=== PATIENT | male | born 1975 | race Caucasian/White ===

== ENCOUNTER 2021-11-02 12:48 | Outpatient (CLI) | payer BC, SELFPAY ==
--- OUTSIDE RECORDS SUMMARY | 2021-10-19 10:41 | XMS_ITS | Continuity of Care Document ---
:1975 Author Allergies, Adverse Reactions, Alerts No known allergies Social History Smoking Status Status Start Date End Date Date of Observat ion Never smoked tobacco April 7:11am (finding) Observation Status Observation Response Date of Response Occasional alcohol consumption September 16, 2017 10:20am Nonsmoker September 16, 2017 10:20 am Does not use illicit drugs September 16 8 10:20am History provided by Patient May 07, 2019 1 2:26am Where do you live? Own home/apt May 07, 2019 1 2:26am Comment on living situation 3 kids April 12:26am With whom do you live? 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 Ac tive of left lower extremity Ureteral calculus, left Resolved GERD (gastroesophageal reflux disease) A ctive History of appendectomy Active Status post bilateral inguinal hernia Ac tive repair History of umbilical hernia repair Activ e Inactive/Resolved Problems Medical Problem Onset Date Status Follow up Resolved Medications Medication Status Dose Units Route Directions Qty Days Start End Ins tructions Date Date Sertraline Active 150 MG PO Daily July Hcl 2021 1:04pm Acetaminophen Disconti 1 TABLET PO Twice A Day 20 [place] PRN /Hydrocodone nued 2008 (Vicodin) 5 10:28a Mg/500 Mg TAB m Acetaminophen Disconti 1 - 2 TABLET PO Every 4-6 August VICODIN 5-500 /Hydrocodone nued Hours , 2008 (Vicodin) 5 10:00am 9:34am Mg/500 Mg TAB Albuterol Disconti 2 PUFF INH Every 4 June (Ventolin nued Hours as , er Hfa) 90 Mcg needed 2018 06, DOSE 8:36am 2018 1:14pm Amoxicillin Disconti 875 MG PO Twice Daily July e nued For 7 Days , r 2020 8:50am 1:04pm Azithromycin Disconti 0 PO Daily June TAKE 500 MG (2 TABLETS) BY MOUTH TODAY, THEN 250 MG (1 TABLET) BY (Zithromax) nued , MOUTH ON CE DAILY FOR 4 MORE DAYS. 250 Mg TAB 2008 2008 9:52am 9:34am Azithromycin Disconti 0 MG PO Daily November TA KE 2 TABLETS TOGETHER TODAY, THEN 1 TABLET ONCE DAILY FOR 4 MORE (Zithromax) nued 250 Mg TAB 2006, 3:57pm 2006 10:30a m Benzonatate Disconti 100 MG PO Three Times Apr uar (Tessalon nued A Day as r , y Berry) 100 needed 2021 02, Mg CAP 7:28am 2021 3:26pm Ceftriaxone Disconti 250 MG IM Once October Sodium nued 2012 12:45pm 1:54pm Cephalexin Disconti 500 MG PO Twice A Day August nued 2017 1:45pm 1:49pm Cyclobenzapri Disconti 10 MG PO Bedtime as July em ne Hcl nued needed 2019, 4:21pm 2019 9:35am Cyclobenzapri Disconti 10 MG PO Bedtime as July ne Hcl nued needed 2017 10:16am 1:45pm Cyclobenzapri Disconti 10 MG PO Bedtime as 15 July Apr l ne Hcl nued needed 2017 10:08am 10:16a m Cyclobenzapri Disconti 1 TABLET PO Bedtime st PRN MUSCLE ne Hcl nued r , SPASM (Flexeril) 2009 Mg TAB 3:32pm 9:41am Diphenhydrami Disconti 25 MG PO October ne Hcl nued , (Sleep) 2008 (Benadryl) 10:38a Mg TAB m Diphtheria/Te Disconti 0.5 ML IM Once November tanus/Acell nued , Pertussis 2016 2016 (Adacel) 0.5 10:30am 10:32a Ml INJ m Doxycycline Disconti 100 MG PO Twice A Day October a Hyclate nued 2012, 1:42pm 2015 8:48am Fenofibrate Disconti 160 MG PO Daily April WIT H FOOD nued , 2019 11:00am 3:53pm Fenofibrate Disconti 160 MG PO Daily [place] TH FOOD nued , 2019 8:12am 11:00a m Guaifenesin/C Disconti 1 - 2 TSP PO Q4h Prn November odeine nued , tona Phosphate 2006, (Guaifenesin- 3:57pm 2006 Codeine) 100 10:30a Mg/10 Mg/5 Ml m SOLN Ibuprofen Disconti 800 MG PO Twice A Day Apruar nued as needed y 2008 7:45am Influenza Disconti 0.5 ML IM Once 1 Virus Vaccine nued r , er (Fluzone Pf 2010, [id number] 4:44pm 2010 (0.5 Ml)) 0.5 4:59pm Ml INJ Lorazepam Disconti 0.5-1 MG PO Bedtime as June nued needed , er 2019 3rd, 8:36am 2018 1:14pm Methylprednis Disconti 1 PACK PO Once 1 November TAKE olone (Medrol nued r , , DIRE CTED ON Dose-Glenn) 2009 PACKAGE Mg TAB 3:32pm 9:41am Metoprolol Disconti 1 TAB PO Twice A Day June Tartrate nued 2008 9:52am 9:34am Multiple Disconti 1 EA PO Daily r Vitamin nued y , (Multivitamin 2012) TAB 1:59pm Naproxen Disconti 500 MG PO Twice A Day June nued , , 2017 2017 10:08am 1:45pm Naproxen Disconti 500 MG PO Twice A Day Novemberuar (Naprosyn) nued , y 3rd, 500 Mg TAB 2010 2012 10:24am 1:59pm Naproxen Disconti 500 MG PO Twice A Day August Ta ke bid with (Naprosyn) nued , , food. 500 Mg TAB 2008 2008 10:00am 9:34am No Home Meds Disconti Novembered 2015 11:19a m None Disconti Novembered 2010 9:41am Omeprazole Disconti 20 MG PO Daily 90 Decembe Januar nued r , y 2021 03, 7:21am 2021 7:02am Prednisone Disconti 20 MG PO Twice A Day 10 mbe Filipe ar nued r , y 2021 02, 9:56am 2021 3:26pm Prednisone Disconti 20 MG PO Twice A Day January mb nued , er 2020 05, 1:35pm 2020 7:19am Prednisone Disconti 20 MG PO Twice A Day July nued , tona 2019, 4:20pm 2019 9:35am Prednisone Disconti 20-40 MG PO Daily June 2 tab s daily nued , er x 3 days; 2019 3rd, then 1 tab 8:36am 2019 daily x 4 1:14pm days. Prednisone Disconti 20 MG PO Twice A Day Julyed , 2017 3:44pm 1:37pm Propranolol Disconti 20 MG PO Twice A Day April y Hcl (Inderal) nued , , 20 Mg TAB 2012 2012 7:51am 9:53am Sertraline Disconti 150 MG PO Daily July Hcl nued , , 2021 2021 10:35am 1:04pm Sertraline Disconti 150 MG PO Daily January Hcl nued , 2020 1:33pm 10:35a m Sertraline Disconti 150 MG PO Daily 145 Februar Octobe Hcl nued y , r 2020 2:40pm 1:33pm Sertraline Disconti 100 MG PO Daily 90 Septemb Februa Hcl nued er ry , 2019 9:36am 2:40pm Sertraline Disconti 50 MG PO Daily July 1/2 t ablet Hcl nued , daily for 2019, week then 4:20pm 2019 increase to 9:36am once daily Zolpidem Disconti 5 MG PO Bedtime April Tartrate nued , (Ambien) 5 Mg 2012 2012 TAB 11:55am 9:53am Immunizations Immunization Event Date Not Given Dose Molded Rubber Goods Cutter Lot Vac cine Reason Number Number Informatio n Statement (VIS) Deta il Influenza February 26 Sanofi Pasteur [id number] Tetanus/Diptheri December 10, 1 a 2017 Tdap December 10, 2 (adolescent/adul 2016 t) Tdap December 16, 3 SANOFI (adolescent/adul 2016 t) Medical Equipment Device Date Implanted Device Details Bard 3DMax Mesh May 06, 2019 JUDI: [id number] Issuing Agency: [facility] Device Id: [id number] Expiration Date: 07-01-27 Lot Number: [id number] Advance Directives Advance Directive Response Recorded Date/Time Does Pt have Health Care No July 19 6 2:55pm Directive? Has patient completed a No May 09 7:11am Health Care Directive? Insurance Providers Guarantor Dipak Hanson Address [address] [place] [id number] Contact Info. Home Phone: Payer Policy Id Coverage Id Subscriber's Subscriber Id Effective E xpiration Name Date Date Bc Medicaid [id number] Dipak Hanson Products [id number] Plan of Treatment Future Tests Future scheduled test information is unavailable Pending Tests Pending diagnostic test information is unavailable Future Visits Future appointment information is unavailable Referrals to Other Providers Reason for Referral Start Provider Provider Contact Provider Address Referral Date Information Kalyani Taylor Work Phone: [facility] [address] [place] [phone] Future Procedures Future procedure information is unavailable Future Medications Future medication information is unavailable Patient Instructions Kidney Stones (ED) Weakness (DC)
--- NOTE | 2021-11-02 13:00 | CRLHL7_ITS ---
For Patients: As a result of the Cures Act, medical imaging exams and procedure reports are released immediately into your electronic medical record. You may view this report before your referring provider. If you have questions, please contact your health care provider. Indication: COUGH X 9 MONTHS. FOLLOW UP. PRE TREATMENT PLANNING PROTOCOL. Technique: CT Chest WITHOUT MONARCH PROTOCOL Please note that all CT scans at this facility use dose modulation, iterative reconstruction, and/or weight-based dosing when appropriate to reduce radiation dose to as low as reasonably achievable. Comparison: 4.8. Findings: Patchy areas of air trapping are present on today`s examination within both upper lobes. Chronic calcified granuloma within the left medial upper lobe measuring 6 millimeters. Decreased conspicuity of the previously noted ground-glass densities superior segment left lower lobe as there is now surrounding atelectasis. Emphysematous changes are better visualized on today`s exam as well. 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 No pleural effusion. Cardiomegaly. No fracture. Stable mediastinal lymph nodes which are not enlarged. Calcified left-sided hilar lymph nodes again noted. Impression: Bilateral lower lobe atelectasis which decreases the conspicuity of the previously noted ground-glass nodule in the left lower lobe. Old granulomatous disease. 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 Please note that all CT scans at this facility use dose modulation, iterative reconstruction, and/or weight-based dosing when appropriate to reduce radiation dose to as low as reasonably achievable. Dictated by Fernando Rolle MD @ 11/02/2021 1:57:21 PM (Electronically Signed)
== END 2021-11-02 12:49 | disposition home or self-care (01) ==
LOC: CT 12:49
PROVIDERS: PCP Physician Assistant Medical; Visit Provider Internal Medicine Pulmonary Disease
DX: R91.8 Other nonspecific abnormal finding of lung field (principal); J98.11 Atelectasis; J44.9 Chronic obstructive pulmonary disease, unspecified
CPT/HCPCS: 71250

== ENCOUNTER 2021-11-15 09:08 | Outpatient (CLI) | payer BC, SELFPAY | END 2021-11-15 09:09 | disposition home or self-care (01) | LOC: NFLDREF 09:09 | PROVIDERS: PCP Physician Assistant Medical; Visit Provider Registered Nurse | DX: Z31.41 Encounter for fertility testing (principal) | CPT/HCPCS: 89310; 89398 ==

== ENCOUNTER 2021-11-16 15:05 | Outpatient (CLI) | payer BC, SELFPAY | END 2021-11-16 15:06 | disposition home or self-care (01) | PROVIDERS: PCP Physician Assistant Medical; Visit Provider Registered Nurse | DX: Z31.41 Encounter for fertility testing (principal) | CPT/HCPCS: 89322 ==

== ENCOUNTER 2022-08-22 21:09 | Emergency (ER) | payer BC, SELFPAY ==
[2022-08-22] VITALS (18 sets, daily range): BP systolic 109–151; BP diastolic 51–85; PULSE 83–94; RESP 18; TEMP 36.6; O2SAT 18–98; BMI 46.3
--- NOTE | 2022-08-22 21:46 | ED.CHESTPAIN ---
HPI - Chest Pain General Date Seen: 08/22/22 Chief Complaint: Chest Pain Stated Complaint: Chest pains Time Seen by Provider: 08/22/22 21:46 History of Present Illness HPI narrative: patient is a very pleasant gentleman with history of pericarditis 15 years ago, elevated triglycerides and palpitations who comes to the emergency room with chest pain. Patient notes that he has a longstanding history of palpitations and actually was seen 3 weeks ago and started on a medication at the [facility]. He notes that he was doing better until this morning. This morning he had an episode of racing heart associated with a cold sweat and nausea. He thought it was perhaps because he had not eaten. He notes that that went away until this evening. He states tonight he is having palpitations approximately 4-5 within an hour and this is the 1st time where it has caused him pain. He notes that the pain is is in his left anterior chest any does not think that radiates. He is not sweaty nor short of breath tonight. He has never had a stress test. He states that he had fluid around his heart pericarditis 15 years ago and it went away with some medication. He notes no past history of heart problems and he has never had a stress test. His mom had a heart transplant approximately 4 years ago. His dad had a stent placed because of an aneurysm from smoking. He states that he has healthy siblings. He does not smoke he rarely uses alcohol and drinks 1-2 cups of coffee a day. He has no pain at this time. Related Data Home Medications Medication Instructions Recorded Confirmed sertraline 100 mg tablet 150 mg PO DAILY 07/16/22 08/22/22 Previous Rx's Medication Instructions Recorded metoprolol succinate 25 mg 12.5 mg PO QDAY #30 tabs 07/19/22 tablet,extended release 24 hr Allergies Allergy/AdvReac Type Severity Reaction Status Date / Time No Known Allergies Allergy Verified 07/18/22 10:08 Review of Systems Status of ROS Reports: 10 or more systems reviewed and unremarkable except as noted in History and below Const Denies: fever, chills or fatigue Eyes Denies: change in vision ENMT Denies: throat pain, neck pain or difficulty swallowing Cardio Reports: chest pain and palpitations; Denies: edema, swelling of feet/ankles, lightheadedness or shortness of breath with exertion Resp Denies: shortness of breath, cough or wheezing GI Denies: abdominal pain, vomiting, diarrhea or difficulty swallowing Musculo Denies: back pain, neck pain, extremity pain or extremity swelling Endo Denies: fatigue Allergy/Immuno Denies: wheezing PFSH PFSH Surgical History History of appendectomy ?Z90.49 - Acquired absence of other specified parts of digestive tract (ICD-10) History of umbilical hernia repair ?Z98.890 - Other specified postprocedural states (ICD-10) ?Z87.19 - Personal history of other diseases of the digestive system (ICD-10) Status post bilateral inguinal hernia repair ?Z98.890 - Other specified postprocedural states (ICD-10) ?Z87.19 - Personal history of other diseases of the digestive system (ICD-10) Family History Mother Breast cancer Diabetes Social History Narrative: Does not use illicit drugs Non-smoker Occasional alcohol consumption Smoking Status: Never smoker Do you use any of these nicotine containing products: None Second hand tobacco smoke exposure: No How often do you have a drink containing alcohol: never How often do you have six or more drinks on one occasion: Never AUDIT-C Alcohol total score: 0 Non-prescribed substance use: denies use service: No Exam Narrative Exam Narrative: Patient is alert and oriented. Nontoxic in appearance. Head is atraumatic normocephalic. Neck is supple without lymphadenopathy. Speech is normal. Heart is with a regular rate and rhythm. I do not auscultate murmur or rub. Heart is hyperdynamic. Lungs are clear bilaterally. Abdomen is obese soft nontender. Lower extremities are without edema. No calf tenderness. Moving all extremities. Const Vital Signs, click to edit/add: Vital Signs - 24 hr 08/22/22 21:15 08/22/22 21:15 08/22/22 21:39 Temperature 97.8 F Pulse Rate Pulse Rate [Pulse Oximeter] 94 Respiratory Rate 18 Blood Pressure 139/80 Blood Pressure [Left Upper Arm] 151/84 H Pulse Oximetry 18 L 98 Oxygen Delivery Method Room Air Room Air 08/22/22 21:45 08/22/22 22:00 08/22/22 22:02 Temperature Pulse Rate 93 94 89 Pulse Rate [Pulse Oximeter] Respiratory Rate Blood Pressure 124/60 Blood Pressure [Left Upper Arm] Pulse Oximetry 96 94 95 Oxygen Delivery Method 08/22/22 22:15 08/22/22 22:30 08/22/22 22:32 Temperature Pulse Rate 91 87 87 Pulse Rate [Pulse Oximeter] Respiratory Rate Blood Pressure 109/66 Blood Pressure [Left Upper Arm] Pulse Oximetry 94 94 93 Oxygen Delivery Method 08/22/22 21:20 08/22/22 22:46 08/22/22 22:33 Temperature Pulse Rate 86 Pulse Rate [Pulse Oximeter] Respiratory Rate Blood Pressure Blood Pressure [Left Upper Arm] Pulse Oximetry 93 94 92 Oxygen Delivery Method 08/22/22 22:45 08/22/22 23:00 08/22/22 23:02 Temperature Pulse Rate 88 87 86 Pulse Rate [Pulse Oximeter] Respiratory Rate Blood Pressure 114/85 Blood Pressure [Left Upper Arm] Pulse Oximetry 94 95 94 Oxygen Delivery Method 08/22/22 23:15 08/22/22 23:30 08/22/22 23:32 Temperature Pulse Rate 88 85 83 Pulse Rate [Pulse Oximeter] Respiratory Rate Blood Pressure 115/51 L Blood Pressure [Left Upper Arm] Pulse Oximetry 94 95 96 Oxygen Delivery Method 08/22/22 23:45 08/23/22 00:00 08/23/22 00:03 Temperature Pulse Rate 89 84 92 Pulse Rate [Pulse Oximeter] Respiratory Rate Blood Pressure 98/58 L Blood Pressure [Left Upper Arm] Pulse Oximetry 98 93 94 Oxygen Delivery Method 08/23/22 00:15 08/23/22 00:30 08/23/22 00:32 Temperature Pulse Rate 89 88 82 Pulse Rate [Pulse Oximeter] Respiratory Rate Blood Pressure 120/67 Blood Pressure [Left Upper Arm] Pulse Oximetry 94 96 97 Oxygen Delivery Method Documenting provider has reviewed patient's vital signs: yes Course Course Hospital Course: Differential diagnosis includes but is not limited to acute coronary event, palpitations, arrhythmia, anxiety, pleurisy, pericarditis. Will place an IV and draw labs to include CBC, comprehensive panel, CRP, troponin, D-dimer. Will also obtain chest x-ray EKG and place patient on surveillance monitor. Reevaluation(s) Reevaluation #1: Patient continues to be pain-free and has had no episodes of palpitations. Will schedule 2nd set of cardiac enzymes 2 hours after initial. Vital Signs Vital signs: Initial Vital Signs Temperature 97.8 F 08/22/22 21:15 Temperature Source Temporal Artery Scan 08/22/22 21:15 Pulse Rate 94 08/22/22 21:15 Pulse Rhythm Regular 08/22/22 21:15 Respiratory Rate 18 08/22/22 21:15 Blood Pressure 151/84 H 08/22/22 21:15 Blood Pressure Mean 106 H 08/22/22 21:15 Pulse Oximetry 18 L 08/22/22 21:15 Oxygen Delivery Method Room Air 08/22/22 21:15 Vital Signs Temperature 97.8 F 08/22/22 21:15 Pulse Rate 94 08/22/22 21:15 Respiratory Rate 18 08/22/22 21:15 Blood Pressure 151/84 H 08/22/22 21:15 Pulse Oximetry 18 L 08/22/22 21:15 Oxygen Delivery Method Room Air 08/22/22 21:15 Temperature 97.8 F 08/22/22 21:15 Pulse Rate 82 08/23/22 00:32 Respiratory Rate 18 08/22/22 21:15 Blood Pressure 120/67 08/23/22 00:32 Pulse Oximetry 97 08/23/22 00:32 Oxygen Delivery Method Room Air 08/22/22 21:15 MDM - Chest Pain MDM Narrative Medical decision making narrative: 1. Atypical chest pain-patient has reassuring EKGs that are unchanged. And 2 sets of negative cardiac enzymes. Patient has been pain-free while he has been in the ER. At this time will discharge home. He feels comfortable going home. Did also relate to him that he has a negative D-dimer, normal chest x-ray. At this time I do not have concerns for serious pathology such as PE or aortic dissection or acute coronary event. 2. Palpitations-none while in the ED no evidence of arrhythmia on monitor. No evidence of muffled heart sounds. D-dimer is normal. CRP is slightly elevated. 3. Disposition-. Patient will be discharged home in the care of his . Recommend increasing magnesium in diet to be via foods or mtow-hny-ajmrvfd supplements. Return to the emergency room for worsening symptoms. Suggest outpatient stress echo given hyperlipidemia, elevated BMI and family history. Medical Records Data Attestation: I reviewed the patient's medical records. Lab Data Attestation: I reviewed the patient's lab results. Labs: Lab Results 08/22/22 08/22/22 08/22/22 Range/Units 21:45 21:56 23:50 WBC 9.34 (4.50-11.00) K/uL RBC 4.63 (4.30-5.90) m/uL Hgb 14.0 (13.5-17.5) gm/dL Hct 42.9 (37.0-53.0) % MCV 93 (80-100) fL MCH 30 (26-34) pg MCHC 33 (32-36) gm/dL RDW Coeff of [place] 12.9 (11.5-15.5) % Plt Count 278 (140-440) K/uL Neut % (Auto) 58.3 (42.0-72.0) % Lymph % (Auto) 26.8 (20-44) % [facility] % (Auto) 11.8 H (0.0-11.0) % Eos % (Auto) 2.7 (0.0-7.0) % Baso % (Auto) 0.3 (0.0-3.0) % Neut # (Auto) 5.45 (1.7-7.0) K/uL Lymph # (Auto) 2.50 (0.90-2.90) K/uL [facility] # (Auto) 1.10 H (0.00-0.90) K/UL Eos # (Auto) 0.25 (0.00-0.50) K/uL Baso # (Auto) 0.03 (0.00-0.30) K/uL D-Dimer Quant (PE/DVT) 0.41 (0.00-0.50) ug/ml Sodium 140 (135-149) mmol/L Potassium 3.9 (3.6-5.1) mmol/L Chloride 103 (96-114) mmol/L Carbon Dioxide 32 (20-32) mmol/L BUN 18 (5-24) mg/dL Creatinine 1.0 (0.5-1.5) mg/dL Estimated Creat Clear 114.53 Estimated GFR 95 ml/min Glucose 123 H (60-115) mg/dL Calcium 8.9 (8.4-10.6) mg/dL Magnesium 1.9 (1.5-2.6) mg/dL Total Bilirubin 0.8 (0.1-1.5) mg/dL AST 28 (12-35) U/L ALT 33 (4-50) U/L Alkaline Phosphatase 83 (40-150) U/L C-Reactive Protein 1.8 H (0.5-1.0) mg/dL Total Protein 8.0 (6.0-8.3) g/dL Albumin 4.1 (3.3-5.0) g/dL POC Troponin I 0.01 0.00 L (0.01-0.04) ng/ml Imaging Data Chest x-ray: Attestation: I have reviewed the pertinent imaging results. My impression: No obvious infiltrates Radiologist's impression: Cardiovascular and mediastinum:? Heart size and vasculature are normal in caliber and appearance.? Lungs and pleural spaces:? Lungs are clear.? No sign of infiltrate or mass. ?No sign of pleural effusion.? No pneumothorax.? Bones and soft tissues:? No significant findings. IMPRESSION: No acute or significant findings. ECG Data Attestation: I personally reviewed and interpreted this ECG as follows: ECG interpretation date: 08/22/22 Interpretation: EKG by my read shows sinus rhythm at a rate of 97. I do not note any acute ST or T-wave changes. Second EKG by my read shows sinus rhythm at a rate of 87. Unchanged from previous. Discharge Plan Discharge Clinical Impression: Heart palpitations, Atypical chest pain Patient Disposition: Home, Self-Care Condition: Improved Instructions: Heart Palpitations (ED) Additional Instructions: Follow-up with primary MD for recheck. Suggest scheduling stress test. Increase magnesium rich foods to include spinach, Kale, salmon. Otherwise if you wish to take hayi-sqf-mmbtzkr supplement you may use magnesium glycinate. Avoid magnesium citrate or other nngj-yxw-lnhdzgq magnesium from [employer] as this will only cause you diarrhea. Return to the emergency room for worsening symptoms. Prescriptions: No Action sertraline 100 mg tablet 150 mg PO DAILY metoprolol succinate 25 mg tablet extended release 24 hr 12.5 mg PO QDAY Qty: 30 0RF Follow Up/Referrals: Kalyani Taylor PA-C [Primary Care Provider] - Stand Alone Forms: [employer] Info Instructions
--- NOTE | 2022-08-22 21:56 | CRLHL7_ITS ---
For Patients: As a result of the Century Cures Act, medical imaging exams and procedure reports are released immediately into your electronic medical record. You may view this report before your referring provider. If you have questions, please contact your health care provider. INDICATION: Chest pain. TECHNIQUE: Chest 1 views. COMPARISON: None. FINDINGS: Cardiovascular and mediastinum: Heart size and vasculature are normal in caliber and appearance. Lungs and pleural spaces: Lungs are clear. No sign of infiltrate or mass. No sign of pleural effusion. No pneumothorax. Bones and soft tissues: No significant findings. IMPRESSION: No acute or significant findings. Dictated by Dipak Stanton MD @ 08/22/2022 11:05:42 PM (Electronically Signed)
[2022-08-22 22:00] LABS: Troponin, Point-of-Care* 0.01 ng/ml (0.01-0.04)
[2022-08-22 22:13] LABS: Basophils Absolute Auto 0.03 K/uL (0.00-0.30); Basophils Percent Auto 0.3 % (0.0-3.0); Eosinophils Absolute Auto 0.25 K/uL (0.00-0.50); Eosinophils Percent Auto 2.7 % (0.0-7.0); Hematocrit 42.9 % (37.0-53.0); Immature Granulocytes Abs Auto 0.01 K/uL (0.00-0.30); Immature Granulocytes Pct Auto 0.1 %; Lymphocytes Percent Auto 26.8 % (20-44); Mean Corpuscular HGB Conc 33 gm/dL (32-36); Mean Corpuscular Hemoglobin 30 pg (26-34); Mean Corpuscular Volume 93 fL (80-100); Monocytes Percent Auto 11.8 % (0.0-11.0); Neutrophils Absolute Auto 5.45 K/uL (1.7-7.0); Neutrophils Percent Auto 58.3 % (42.0-72.0); Platelet Count* 278 K/uL (140-440); RDW Coefficient of Variation % 12.9 % (11.5-15.5); Red Blood Count 4.63 m/uL (4.30-5.90); White Blood Count* 9.34 K/uL (4.50-11.00)
[2022-08-22 22:18] LABS: Slide Review Reflex No
[2022-08-22 22:31] LABS: Chloride* 103 mmol/L (96-114)
[2022-08-22 22:32] LABS: Albumin* 4.1 g/dL (3.3-5.0); Sodium* 140 mmol/L (135-149)
[2022-08-22 22:33] LABS: Potassium* 3.9 mmol/L (3.6-5.1)
[2022-08-22 22:35] LABS: Alanine Aminotransferase* 33 U/L (4-50); Alkaline Phosphatase* 83 U/L (40-150); Aspartate Amino Transferase* 28 U/L (12-35); Bilirubin Total* 0.8 mg/dL (0.1-1.5); Blood Urea Nitrogen* 18 mg/dL (5-24); Carbon Dioxide* 32 mmol/L (20-32); Est. Creatinine Clearance* 114.53; Estimated Glomerular Filt Rate 95 ml/min
[2022-08-22 22:36] LABS: Calcium* 8.9 mg/dL (8.4-10.6); D Dimer Quantitative* 0.41 ug/ml (0.00-0.50); Glucose* 123 mg/dL (60-115); Magnesium* 1.9 mg/dL (1.5-2.6)
[2022-08-22 22:38] LABS: C Reactive Protein* 1.8 mg/dL (0.5-1.0)
[2022-08-23] VITALS: PULSE 84; O2SAT 93
[2022-08-23 00:03] VITALS: BP 98/58; PULSE 92; O2SAT 94
[2022-08-23 00:15] VITALS: PULSE 89; O2SAT 94
[2022-08-23 00:30] VITALS: PULSE 88; O2SAT 96
[2022-08-23 00:32] VITALS: BP 120/67; PULSE 82; O2SAT 97
== END 2022-08-23 00:54 | disposition home or self-care (01) ==
PROVIDERS: Emergency Provider Family Medicine; PCP Physician Assistant Medical
DX: R07.89 Other chest pain (principal); R00.2 Palpitations
CPT/HCPCS: 36415; 71045; 80053; 83735; 84484; 85025; 85379; 86140; 93005; 94761; 99284; 99285

== ENCOUNTER 2023-03-24 07:36 | Outpatient (CLI) | payer BC, SELFPAY ==
--- NOTE | 2023-03-24 08:00 | CRLHL7_ITS ---
For Patients: As a result of the Century Cures Act, medical imaging exams and procedure reports are released immediately into your electronic medical record. You may view this report before your referring provider. If you have questions, please contact your health care provider. INDICATION: Left lower quadrant abdominal pain. Possible new hernia. History of bilateral inguinal hernia repair. History of umbilical hernia repair. TECHNIQUE: Contrast-enhanced CT of the abdomen and pelvis. 150 cc nonionic Isovue-370 administered. COMPARISON: October 02, 2019. FINDINGS: Postsurgical change from bilateral inguinal hernia repair. No recurrent hernia. Very tiny fat containing umbilical hernia image 107 series 2 measuring 1.3 cm across. Hepatic fatty infiltration. The liver is otherwise negative. The spleen, partly fatty infiltrated pancreas, gallbladder, and adrenal glands are normal. There are 3 tiny punctate nonobstructing stones in the right kidney. There is 1 tiny punctate nonobstructing stone in the left kidney. Few mm cyst superior pole left kidney. No hydronephrosis of either kidney. No stones along the course of the ureters or in the urinary bladder. The abdominal aorta, iliac arteries, inferior vena cava, urinary bladder, prostate gland, and seminal vesicles are normal. No bowel obstruction ileus. No ascites or lymphadenopathy. Surgically absent appendix. Clear included lung bases. The included skeleton is negative for fractures. IMPRESSION: 1. There are postsurgical changes from bilateral inguinal hernia repair. No recurrent inguinal hernia. Tiny fat containing umbilical hernia. 2. Surgically absent appendix. 3. Three tiny punctate nonobstructing stones in the right kidney and 1 tiny punctate nonobstructing stone in the left kidney. Resolution left-sided hydronephrosis compared to the prior study. 4. Hepatic fatty infiltration. Please note that all CT scans at this facility use dose modulation, iterative reconstruction, and/or weight-based dosing when appropriate to reduce radiation dose to as low as reasonably achievable. Dictated by Clarence Franco MD @ 03/24/2023 9:26:46 AM (Electronically Signed)
== END 2023-03-24 07:37 | disposition home or self-care (01) ==
LOC: CT 07:36
PROVIDERS: PCP Physician Assistant Medical; Visit Provider Surgery
DX: R10.32 Left lower quadrant pain (principal); N20.0 Calculus of kidney; K76.0 Fatty (change of) liver, not elsewhere classified
CPT/HCPCS: 74177; Q9967

== ENCOUNTER 2024-12-31 09:00 | Outpatient (CLI) | payer BC, SELFPAY | END 2024-12-31 09:01 | disposition home or self-care (01) | LOC: NFLDREF 01-05 11:04 | PROVIDERS: PCP Family Medicine; Visit Provider Family Medicine | DX: Z13.6 Encounter for screening for cardiovascular disorders; Z00.00 Encounter for general adult medical examination without abnormal findings | CPT/HCPCS: 80053; 80061 ==

== ENCOUNTER 2025-01-17 07:53 | Outpatient (CLI) | payer BC, SELFPAY ==
--- NOTE | 2025-01-17 09:08 | P.ANES_ITS ---
Anesthesia Charges Start Date/Time Anesthesia Start Date: 01/17/25 Anesthesia Start Time: 08:35 Stop Date/Time Anesthesia Stop Date: 01/17/25 Anesthesia Stop Time: 09:05 Coding CPT Codes CPT Codes: ANES LWR INTST NDSC NOS - 07523 ([id number]) QK - FIRE OFFICIAL 2-4 CNCRNT ANES PROC, QX - HEALTH INSURANCE SPECIALIST SVC W/ MED DIRECTION, P3 - PATIENT W/SEVERE SYS DISEASE
--- NOTE | 2025-01-17 09:08 | W.ANESCHARGE ---
Anesthesia Charges Start Date/Time Anesthesia Start Date: 01/17/25 Anesthesia Start Time: 08:35 Stop Date/Time Anesthesia Stop Date: 01/17/25 Anesthesia Stop Time: 09:05 Coding CPT Codes CPT Codes: ANES LWR INTST NDSC NOS - 17161 ([id number]) QK - ALUMINUM FABRICATION SUPERVISOR 2-4 CNCRNT ANES PROC, QX - INKJET OPERATOR SVC W/ MED DIRECTION, P3 - PATIENT W/SEVERE SYS DISEASE
--- NOTE | 2025-01-17 09:09 | P.ANES_ITS ---
Anesthesia Charges Start Date/Time Anesthesia Start Date: 01/17/25 Anesthesia Start Time: 08:35 Stop Date/Time Anesthesia Stop Date: 01/17/25 Anesthesia Stop Time: 09:05 Coding CPT Codes CPT Codes: ANES LWR INTST NDSC NOS - 89735 ([id number]) P3 - PATIENT W/SEVERE SYS DISEASE, QX - STONE SAWYER SVC W/ MD MED DIRECTION, QK - CONFERENCE PLANNING MANAGER 2-4 CNCRNT ANES PROC
--- NOTE | 2025-01-17 09:09 | W.ANESCHARGE ---
Anesthesia Charges Start Date/Time Anesthesia Start Date: 01/17/25 Anesthesia Start Time: 08:35 Stop Date/Time Anesthesia Stop Date: 01/17/25 Anesthesia Stop Time: 09:05 Coding CPT Codes CPT Codes: ANES LWR INTST NDSC NOS - 87559 ([id number]) P3 - PATIENT W/SEVERE SYS DISEASE, QX - LEG BREAKER SVC W/ MD MED DIRECTION, QK - COOK DINNER 2-4 CNCRNT ANES PROC
== END 2025-01-17 07:54 | disposition home or self-care (01) ==
LOC: OP CLINIC 07:54
PROVIDERS: PCP Family Medicine; Visit Provider Internal Medicine
DX: Z12.11 Encounter for screening for malignant neoplasm of colon (principal); D12.5 Benign neoplasm of sigmoid colon
CPT/HCPCS: 00811; 00812; 45380; 45385; 88305

== ENCOUNTER 2025-01-19 14:49 | Emergency (ER) | payer BC, SELFPAY ==
[2025-01-19 14:57] VITALS: BP 145/88; PULSE 90; RESP 22; TEMP 36.8; O2SAT 97; BMI 45.4
--- NOTE | 2025-01-19 15:02 | ED_ITS ---
HPI - General Adult General Chief complaint: Abdominal Pain Stated complaint: Post surgery issues: bloating in intestines/stomac Time Seen by Provider: 01/19/25 15:01 History of Present Illness HPI narrative: Arrives with complaints of abdominal discomfort and bloating that has been present since after he had a colonoscopy on Friday. Reports he is passing gas and having bowel movements , no bleeding noted. Alert and oriented, ABCs intact. 49-year-old man presenting to the emergency department with concern of abdominal pain. 2 days ago had a colonoscopy with 2 biopsies taken from the sigmoid. Procedure was uneventful. Since that time he has been having increased abd ominal discomfort and bloating. Passed gas last he recalls yesterday. Bowel movement yesterday. Has not really felt like eating but not with significant nausea but he says has also been on some degree of a diet. No fever. No hematochezia, no melena noted. Related Data Previous Rx's ?Medication ?Instructions ?Recorded cholecalciferol (vitamin D3) 125 125 mcg PO QDAY #90 c aps 12/14/24 mcg (5,000 unit) capsule diclofenac sodium 1 % topical gel 2 g topical QID #100 grams 12/14/24 (Voltaren Arthritis Pain) semaglutide (weight loss) 0.25 0.25 mg (0.5 mL) subcut QWEEK #2 mL 12/14/24 mg/0.5 mL subcutaneous pen injector (Wegovy) semaglutide (weight loss) 0.5 0.5 mg (0.5 mL) subcut Q WEEK #2 mL 12/14/24 mg/0.5 mL subcutaneous pen injector (Wegovy) semaglutide (weight loss) 1 mg/0.5 1 mg (0.5 mL) subcu t QWEEK #2 mL 12/14/24 mL subcutaneous pen injector (Wegovy) semaglutide (weight loss) 1.7 1.7 mg (0.75 mL) subcut QWEEK #3 mL 12/14/24 mg/0.75 mL subcutaneous pen injector (Wegovy) semaglutide (weight loss) 2.4 2.4 mg (0.75 mL) subcut QWEEK #3 mL 12/14/24 mg/0.75 mL subcutaneous pen injector (Wegovy) venlafaxine 37.5 mg 37.5 mg PO QHS #180 caps capsule,extended release 24 hr peg 3350-electrolytes 236 240 ml PO Q10M #4,000 mL 12/20 gram-22.74 gram-6.74 gram-5.86 gram solution (Golytely) Allergies Allergy/AdvReac Type Severity Reaction Status Date / Time No Known Allergies Allergy Verified 01/19/25 14:55 Review of Systems Status of ROS: Reports: 6 or more systems reviewed and unremarkable except as noted in History and below [facility] Medical History Right knee pain ?M25.561 - Pain in right knee (ICD-10) Surgical History Status post bilateral inguinal hernia repair ?Z98.890 - Other specified postprocedural states (ICD-10) ?Z87.19 - Personal history of other diseases of the digestive system (ICD-10) History of umbilical hernia repair ?Z98.890 - Other specified postprocedural states (ICD-10) ?Z87.19 - Personal history of other diseases of the digestive system (ICD-10) History of appendectomy ?Z90.49 - Acquired absence of other specified parts of digestive tract (ICD- 10) Family History Mother Breast cancer Diabetes Social History Narrative: Does not use illicit drugs Non-smoker Occasional alcohol consumption Smoking Status: Never smoker Do you use any of these nicotine containing products: None Second hand tobacco smoke exposure: No How often do you have a drink containing alcohol: never How often do you have six or more drinks on one occasion: Never AUDIT-C Alcohol total score: 0 Non-prescribed substance use: denies use service: No Exam Narrative: Exam Narrative: large man. Pleasant. Quiet. Seems a little uncomfortable. Heart in mildly elevated to regular rate and rhythm without murmur rub or gallop. Diminished bowel sounds but little hard to hear I think. Guards to palpation in the mid upper abdomen. Well-perfused peripherally. Const: Vital Signs, click to edit/add: Vital Signs - 24 hr 01/19/25 14:57 01/19/25 15:50 01/19/25 15:51 Temperature 98.2 F Pulse Rate 94 88 Pulse Rate [Pulse Oximeter] 90 Respiratory Rate 22 16 16 Blood Pressure 127/84 Blood Pressure [Ri ght Upper Arm] 145/88 H Pulse Oximetry 97 95 94 Oxygen Delivery Me thod Room Air Documenting provider has reviewed patient's vital signs: yes Course Vital Signs Vital signs: Initial Vital Signs Temperature 98.2 F 01/19/25 14:57 Temperature Source Temporal Artery Scan 01/19/25 14:57 Pulse Rate 90 01/19/25 14:57 Respiratory Rate 22 01/19/25 14:57 Blood Pressure 145/88 H 01/19/25 14:57 Blood Pressure Mean 107 H 01/19/25 14:57 Pulse Oximetry 97 01/19/25 14:57 Oxygen Delivery Method Room Air 01/19/25 14:57 Vital Signs Temperature 98.2 F 01/19/25 14:57 Pulse Rate 90 01/19/25 14:57 Respiratory Rate 22 01/19/25 14:57 Blood Pressure 145/88 H 01/19/25 14:57 Pulse Oximetry 97 01/19/25 14:57 Oxygen Delivery Method Room Air 01/19/25 14:57 Temperature 98.2 F 01/19/25 14:57 Pulse Rate 81 01/19/25 17:02 Respiratory Rate 18 01/19/25 17:02 Blood Pressure 145/66 H 01/19/25 17:02 Pulse Oximetry 95 01/19/25 17:02 Oxygen Delivery Method Room Air 01/19/25 14:57 Medications Administered Medications: Discontinued Medications Generic Name Dose Route Start Last Admin Trade Name Freq PRN Reason Stop Dose Admin Sodium Chloride 1,000 mls @ 1,000 mls/hr 01/19/25 15:07 01/19/25 17:09 0.9 % Sodium Chloride 1000 Ml IV 01/19/25 16:06 Infused .Q1H ONE Infusion Ketorolac Tromethamine 30 mg 01/19/25 15:07 01/19/25 15:40 Ketorolac 30 Mg/Ml Inj IVP 01/19/25 15:08 30 mg ONCE ONE Administration Morphine Sulfate 4 mg 01/19/25 15:07 01/19/25 15:40 Morphine 4 Mg/Ml Inj IVP 01/19/25 15:08 4 mg ONCE ONE Administration Medical Decision Making MDM Narrative Medical decision making narrative: I do discuss this case with the physician who performed colonoscopy. Due to recent colonoscopy though will need imaging and certainly that abdominal exam is concerning. There might be perforation or diverticulitis. Does seem to be exhibiting some peritoneal signs. Area of pain could be related to gallbladder or pancreas. IV was placed. Standard labs as well. I do not think will need a contrasted image CRP is elevated at 3.1. Labs otherwise reassuring with normal white count. CT non contrasted of abdomen pelvis independently reviewed by me does show some inflammatory change in the area of the pancreas but otherwise I can not tell that there is anything else of significance. Radiology over-read below INDICATION: Intense mid upper abdominal pain 2 days after colonoscopy TECHNIQUE: CT abdomen and pelvis without contrast. COMPARISON: CT 03/24/2023 FINDINGS: Lower chest: Unremarkable. Liver: Fatty liver. Gallbladder and bile ducts: No stones or inflammation. No biliary dilatation. Pancreas: Mild inflammatory stranding about the head of the pancreas suspect pancreatitis. Spleen: Normal in size. No masses. Adrenal glands: Normal in size. No nodules. Kidneys: Punctate nonobstructing left renal calculus kidneys are otherwise unremarkable GI tract: Unremarkable. Normal in caliber. No sign of mass or inflammation. Normal appendix. Vasculature: Abdominal aorta is normal in caliber. Lymph nodes: No lymphadenopathy. Peritoneum/Abdominal Wall: Postsurgical changes of inguinal hernia repair. Minimal amount of fat the inguinal canals unchanged tiny fat containing umbilical hernia. No free air. Pelvis: Unremarkable. No pelvic masses. Bones: Unremarkable for age. IMPRESSION: 1. Inflammatory stranding about the head of the pancreas suspect pancreatitis recommend correlation with laboratory exam. 2. No free intraperitoneal air. 3. Fatty liver. Please note that all CT scans at this facility use dose modulation, iterative reconstruction, and/or weight-based dosing when appropriate to reduce radiation dose to as low as reasonably achievable. Dictated by Shonda Anthony MD @ 01/19/2025 3:46:31 PM He prefers to go home with pain management Rather than being admitted for bowel rest. Pain I think is intense but lipase is reassuring and he has not been vomiting. see patient discharge plan for further discussion focus on hydration. Clear diet over the next 24-36 hours. Then to a light diet avoiding extra proteins and with minimal fat. prescribing -[id number]-c-e-t- ([place] as out of percocet) as an opiate from [employer]. Each tablet contains 5 mg of hydrocodone and 325 mg of acetaminophen. On the days that you take hydrocodone, might want to also take a tablet of senna for bowels. can take up to 800 mg of ibuprofen or up to 1000 mg of acetaminophen per dose. Also Zofran from [employer]. Be seen for marked increase in persistent pain repeated vomiting, fever. Medical Records Medical records reviewed: Yes I reviewed the patient's medical records Lab Data Lab results reviewed: Yes I reviewed the patient's lab results Labs: Lab Results 01/19/25 Range/Units 15:30 WBC 8.30 (4.50-11.00) K/uL RBC 4.78 (4.30-5.90) m/uL Hgb 14.4 (13.5-17.5) gm/dL Hct 43.5 (37.0-53.0) % MCV 91 (80-100) fL MCH 30 (26-34) pg MCHC 33 (32-36) gm/dL RDW Coeff of Gabino 12.5 (11.5-15.5) % Plt Count 254 (140-440) K/uL Neut % (Auto) 61.9 (42.0-72.0) % Lymph % (Auto) 20.7 (20-44) % [place] % (Auto) 12.7 H (0.0-11.0) % Eos % (Auto) 4.1 (0.0-7.0) % Baso % (Auto) 0.4 (0.0-3.0) % Neut # (Auto) 5.14 (1.7-7.0) K/uL Lymph # (Auto) 1.72 (0.90-2.90) K/uL [place] # (Auto) 1.10 H (0.00-0.90) K/UL Eos # (Auto) 0.34 (0.00-0.50) K/uL Baso # (Auto) 0.03 (0.00-0.30) K/uL Abs Immat Gran (auto) 0.02 (0.00-0.30) K/uL Imm/Tot Granulo (auto) 0.2 % Sodium 140 (135-149) mmol/L Potassium 4.2 (3.6-5.1) mmol/L Chloride 107 (96-114) mmol/L Carbon Dioxide 25 (20-32) mmol/L Anion Gap 8 (7-15) mEq/L BUN 10 (5-24) mg/dL Creatinine 0.8 (0.5-1.5) mg/dL Estimated Creat Clear 138.64 Estimated GFR 109 ml/min Glucose 115 (60-115) mg/dL Calcium 9.1 (8.4-10.6) mg/dL Total Bilirubin 1.2 (0.1-1.5) mg/dL Direct Bilirubin 0.3 (0.0-0.5) mg/dL AST 33 (12-35) U/L ALT 26 (4-50) U/L Alkaline Phosphatase 70 (40-150) U/L C-Reactive Protein 3.1 H (0.5-1.0) mg/dL Total Protein 8.5 H (6.0-8.3) g/dL Albumin 4.3 (3.3-5.0) g/dL Lipase 213 (23-300) U/L Lab Acknowledgement Test Added Discharge Plan Discharge Clinical Impression: Abdominal pain, Pancreatitis Patient Disposition: Home w/ Parent or Adult Condition: Stable Instructions: Acute Abdominal Pain (DC) Additional Instructions: focus on hydration. Clear diet over the next 24-36 hours. Then to a light diet avoiding extra proteins and with minimal fat. prescribing -K-f-y-c-o-c-e-t- ([place] as out of percocet) as an opiate from [employer]. Each tablet contains 5 mg of hydrocodone and 325 mg of acetaminophen. On the days that you take hydrocodone, might want to also take a tablet of senna for bowels. can take up to 800 mg of ibuprofen or up to 1000 mg of acetaminophen per dose. Also Zofran from [employer]. Be seen for marked increase in persistent pain repeated vomiting, fever. Prescriptions: No Action diclofenac sodium [Voltaren Arthritis Pain] 1 % gel 2 g topical QID Qty: 100 0RF Rx Instructions: apply to knee up to 4 times a day as needed venlafaxine 37.5 mg capsule,extended release 24hr 37.5 mg PO QHS Qty: 180 1RF Rx Instructions: start with one tab daily x 1 week, then increase to 2 tabs daily thereafter Wegovy 0.25 mg/0.5 mL pen injector 0.25 mg subcut QWEEK Qty: 2 0RF Rx Instructions: administer weeks 1 through 4 of therapy Wegovy 0.5 mg/0.5 mL pen injector 0.5 mg subcut QWEEK Qty: 2 0RF Rx Instructions: administer weeks 5 through 8 of therapy Wegovy 1 mg/0.5 mL pen injector 1 mg subcut QWEEK Qty: 2 0RF Rx Instructions: administer weeks 9 through 12 of therapy Wegovy 1.7 mg/0.75 mL pen injector 1.7 mg subcut QWEEK Qty: 3 0RF Rx Instructions: administer weeks 13 through 16 of therapy Wegovy 2.4 mg/0.75 mL pen injector 2.4 mg subcut QWEEK Qty: 3 0RF cholecalciferol (vitamin D3) 125 mcg (5,000 unit) capsule 125 mcg PO QDAY Qty: 90 3RF peg 3350-electrolytes [Golytely] 236-22.74-6.74 -5.86 gram recon soln 240 ml PO Q10M Qty: 4000 0RF Rx Instructions: until fecal effluent is clear Follow Up/Referrals: Zachary Grey MD [Primary Care Provider, Family Practice] Stand Alone Forms: [facility] Info Instructions
--- NOTE | 2025-01-19 15:07 | CRLHL7_ITS ---
For Patients: As a result of the Century Cures Act, medical imaging exams and procedure reports are released immediately into your electronic medical record. You may view this report before your referring provider. If you have questions, please contact your health care provider. INDICATION: Intense mid upper abdominal pain 2 days after colonoscopy TECHNIQUE: CT abdomen and pelvis without contrast. COMPARISON: CT 03/24/2023 FINDINGS: Lower chest: Unremarkable. Liver: Fatty liver. Gallbladder and bile ducts: No stones or inflammation. No biliary dilatation. Pancreas: Mild inflammatory stranding about the head of the pancreas suspect pancreatitis. Spleen: Normal in size. No masses. Adrenal glands: Normal in size. No nodules. Kidneys: Punctate nonobstructing left renal calculus kidneys are otherwise unremarkable GI tract: Unremarkable. Normal in caliber. No sign of mass or inflammation. Normal appendix. Vasculature: Abdominal aorta is normal in caliber. Lymph nodes: No lymphadenopathy. Peritoneum/Abdominal Wall: Postsurgical changes of inguinal hernia repair. Minimal amount of fat the inguinal canals unchanged tiny fat containing umbilical hernia. No free air. Pelvis: Unremarkable. No pelvic masses. Bones: Unremarkable for age. IMPRESSION: 1. Inflammatory stranding about the head of the pancreas suspect pancreatitis recommend correlation with laboratory exam. 2. No free intraperitoneal air. 3. Fatty liver. Please note that all CT scans at this facility use dose modulation, iterative reconstruction, and/or weight-based dosing when appropriate to reduce radiation dose to as low as reasonably achievable. Dictated by Shonda Anthony MD @ 01/19/2025 3:46:31 PM (Electronically Signed)
[2025-01-19] MEDS: MORPHINE 4 MG/ML INJ IVP (15:40)
[2025-01-19 15:41] LABS: Hematocrit* 43.5 % (37.0-53.0); Hemoglobin* 14.4 gm/dL (13.5-17.5); Immature Granulocytes Abs Auto 0.02 K/uL (0.00-0.30); Immature Granulocytes Pct Auto 0.2 %; Lymphocytes Absolute Auto 1.72 K/uL (0.90-2.90); Mean Corpuscular HGB Conc 33 gm/dL (32-36); Mean Corpuscular Hemoglobin 30 pg (26-34); Mean Corpuscular Volume 91 fL (80-100); RDW Coefficient of Variation % 12.5 % (11.5-15.5); Red Blood Count* 4.78 m/uL (4.30-5.90); White Blood Count* 8.30 K/uL (4.50-11.00)
[2025-01-19 15:43] LABS: Slide Review Reflex No
[2025-01-19 15:50] VITALS: BP 127/84; PULSE 94; RESP 16; O2SAT 95
[2025-01-19 15:51] VITALS: PULSE 88; RESP 16; O2SAT 94
--- OUTSIDE RECORDS SUMMARY | 2025-01-19 15:52 | XMS_ITS | Clinical Summary ---
Author Organization [facility] Address [address] [place] [address] Care Team Providers Care Separating Machine Operator Name Role Phone Mariela July Kings JERARDO Primary Care Provider [phone] Source Comments You are receiving this document as you are listed as the primary care provider,follow-up provider, or the patient has been referred to you for consultation.This is in compliance with the Medicare and[facility] EHR Incentive Program,which states Providers who transition their patient to another setting of careor provider of care or refers their patient to another provider of care shouldprovide summary care record for each transition of care or referral. [facility] Allergies No known active allergies Medications HYDROcodone-rajiv taminophen (NORCO) 5-325 MG tablet Take 1-2 tablets by mouth 3 times daily as needed for Pain. 20 tablet 0 01/16/2014 Active Social History Tobacco Use Types Packs/Day Years Used Date Smoking Tobacco: Never Assessed Sex and Gender Information Value Date Recorded Sex Assigned at Not on file Legal Sex Male 6:21 AM CDT Gender Identity Not on file Sexual Orientation Not on file Last Filed Vital Signs Vital Sign Reading Time Taken Comments Blood Pressure 178/103 04/17/2021 12:11 PM SALESMAN/OWNER Pulse 113 04/17/2021 12:09 PM SALESMAN/OWNER Temperature 36.8 C (98.3 F) 04/17/2021 12:09 PM SALESMAN/OWNER Respiratory Rate 16 01/16/2014 8:29 AM CDT Oxygen Saturation 95% 04/17/2021 12:09 PM SALESMAN/OWNER Inhaled Oxygen Concentration - - Weight - - Height - - Body Mass Index - - Plan of Treatment Health Maintenance Due Date Last Done Comments Colon Cancer Screening Plan Due 1976 Hep C Screening (Preventive Services) 1976 HIV Screening (Preventive Services) 1992 Adult Preventive Visit 1994 DTaP/Tdap/Td Vaccine (1 - Tdap) 09/21/1995 HepB Vaccine (1) 09/21/1995 Cholesterol 09/21/2011 COVID-19 Vaccine (1 - 2023-2 5 season) 2024 Influenza Vaccine (#1) 2024 Zoster/Shingles Vaccine (1 of 2) 2026 HepA Vaccine Aged Out No longer eligi ble based on patient's age to complete this topic Hib Vaccine Aged Out No longer eligi ble based on patient's age to complete this topic IPV (Polio) Vaccine Aged Out No longe r eligible based on patient's age to complete this topic MCV4 Vaccine Aged Out No longer eligi ble based on patient's age to complete this topic Meningococcal B Vaccine Aged Out No l onger eligible based on patient's age to complete this topic Pneumococcal Vaccine Aged Out No long er eligible based on patient's age to complete this topic Insurance [employer] Care Teams Separating Machine Operator Relationship Specialty Start Date End Date Mariela July Kings, JERARDO [address] [place] [address] PCP - General 01/16/14
--- OUTSIDE RECORDS SUMMARY | 2025-01-19 15:52 | XMS_ITS | Clinical Summary ---
Author Organization [id number] Address [address] [place] [id number] Care Team Providers Care Laser Specialist Name Role Phone Pcp, No Primary Care Provider Unavailabl e Allergies No known active allergies Medications sertraline (ZOLOFT) 100 mg tablet Take 0.5 Tablets by mouth once daily. 11/19/2021 Active Advair Diskus 500-50 mcg/dose diskus inhaler Inhale 1 Puff by mouth 2 times daily. 07/09/2021 Active montelukast (SINGULAIR) 10 mg tablet Take 10 mg by mouth once daily. 11/19/2021 Active predniSONE (DELTASONE) 10 mg tablet Take 4 Tablets by mouth once daily with a meal. 10/06/2021 Active fluticasone fur-umeclidiniu m-vilanterol (Trelegy Ellipta) 200-62.5-25 mcg inhaler Inhale 1 Puff by mouth once daily. Active Active Problems Problem Noted Date Diagnosed Date NEVUS, NON-NEOPLASTIC 10/26/1999 Encounters Date Type Department Care Team Description 01/18/2025 Lab Requisition [facility] [phone] Fadi Genao MD from Last 3 Months Family History Medical History Relation Name Comments Genetic Other 1 no family histo ry of premature coranary artery disease Genetic Other 2 no family histo ry of premature coranary artery disease~cancer, hypertension, diabetes Relation Name Status Comments Other 1 Other 2 Social History Tobacco Use Types Packs/Day Years Used Date Smoking Tobacco: Never Smokeless Tobacco: Never Alcohol Use Standard Drinks/Week Comments Yes 0 (1 standard drink = 0.6 oz pur e alcohol) rare Sex and Gender Information Value Date Recorded Sex Assigned at Not on file Legal Sex Male 5:24 AM RESIDENTIAL CARE OFFICER Gender Identity Not on file Sexual Orientation Not on file Obstetrics History Last Filed Vital Signs Vital Sign Reading Time Taken Comments Blood Pressure 153/88 11/30/2021 1:35 PM CDT Pulse 88 11/30/2021 1:35 PM CDT Temperature 36.8 C (98.2 F) 11/30/2021 12:53 PM CDT Respiratory Rate 15 11/30/2021 1:35 PM CDT Oxygen Saturation 95% 11/30/2021 1:35 PM CDT Inhaled Oxygen Concentration - - Weight 173.3 kg (382 lb) 11/28/2021 4:30 PM CDT Height 193 cm (6' 4) 11/28/2021 4:30 PM CDT Body Mass Index 46.5 11/28/2021 4:30 PM CDT Plan of Treatment Health Maintenance Due Date Last Done Comments Tetanus booster 09/21/1987 Depression screening for age 12+ 1988 HIV for age 15-65 09/21/1991 BMI (ht and wt on same day) for age 18+ 1994 Hepatitis B series for 19+ ( 1 of 3 - 19+ 3-dose series) 09/21/1995 Colonoscopy through age 75 2021 Lipids for age 45-75 2021 01/24/2004, 10/13/2002, 10/13/2002 COVID-19 vaccine series ( - season) 2024 Influenza Vaccine (#1) 2024 RSV vaccine for adults or (1 - 1-dose 75+ series) 09/21/2051 Hepatitis C screening for ag e 18-79 Completed 05/22/2004 Pneumococcal series for age 6-49 Aged Out No longer eligible b ased on patient's age to complete this topic Procedures Procedure Name Priority Date/Time Associated Diagnosis Comments PATH TISSUE EXAM Routine 01/17/2025 8:57 AM CDT ANTI HCV Timed 05/22/2004 9:49 AM RESIDENTIAL CARE OFFICER LIPID PANEL Timed 01/24/2004 6:50 AM CDT from Last 3 Months or Most Recently Relevant to Health Maintenance Results * PATH TISSUE EXAM (01/17/2025 8:57 AM CDT) Case Report Pathology Report Case: [id number] Authorizing Provider: Fadi Genao MD Collected: 01/17/2025 0857 Ordering Location: [facility] Received: 01/18/2025 1039 Pathologist: Pablito Roe MD Specimen: Sigmoid Polyp 01/19/2025 12:48 PM CDT [facility] Final Diagnosis A) COLON, SIGMOID, POLYPECTOMIES: 1. Hyperplastic polyps (4) 01/19/2025 12:48 PM CDT [facility] at 1248 CDT Clinical Information Colonoscopy 01/19/2025 12:48 PM CDT [facility] Gross Description A) Received in formalin are 4 swartz mucosal fragments ranging from 2 mm to 3 mm in greatest dimension, which are entirely submitted in one cassette. It is labeled with the patient's name and designated sigmoid colon multiple polyps. Radha Parnell 01/18/2025 2:26 PM 01/19/2025 12:48 PM CDT [facility] Microscopic Description The final diagnosis is based on microscopic examination of appropriate sections of all specimens. 01/19/2025 12:48 PM CDT [facility] Additional Information Interpreted at [facility] - [address], [place] [address] 01/19/2025 12:48 PM CDT [facility] Other (Sigmoid Polyp) 01/17/2025 8:57 AM CDT 01/18/2025 10:39 AM CDT us Fadi Genao MD PATHOLOGY/CYTOLOGY Final Res ult [facility] [address] [place] [address], * ANTI HCV (05/22/2004 9:49 AM RESIDENTIAL CARE OFFICER) ANTI HCV Non-reactiv e [facility] 05/22/2004 9:49 AM RESIDENTIAL CARE OFFICER 05/22/2004 3:02 PM RESIDENTIAL CARE OFFICER Narrative [facility] - 05/24/2004 12:50 PM RESIDENTIAL CARE OFFICER Testing Performed By [place], [place] us Sandra Gallardo MD SEND OUTS Final R esult [facility] [address] [place] [address] * (ABNORMAL) LIPID PANEL (01/24/2004 6:50 AM CDT) CHOLESTEROL,TOTAL 166 110 - 199 mg/dL [facility] TRIGLYCERIDES 221(H) 40 - 149 mg/dL [facility] HDL CHOLESTEROL 39(L) 41 - 75 mg/dL [facility] CHOL/HDL RATIO 4.26 <4.51 [facility] LDL CHOLESTEROL 83 60 - 130 mg/dL [facility] 01/24/2004 6:50 AM CDT 01/24/2004 2:06 AM CDT us Clarence Camarillo MD CHEMISTRY Final Res ult [facility] SENDOUT [place]NAL ZIP [address] [place] [id number] from Last 3 Months or Most Recently Relevant to Health Maintenance Insurance Segment [facility] Advance Directives * Full Code (Latest Code Status on File) Date Activated Date Inactivated Comments 11/30/2021 10:17 AM 11/30/2021 4:21 PM Question Answer Comments Code Status Discussion: Unable to Assess Preferences, Provider to review later Care Teams Laser Specialist Relationship Specialty Start Date End Date Pcp, No . PCP - General 11/23/21
[2025-01-19 15:54] LABS: Albumin* 4.3 g/dL (3.3-5.0); Chloride* 107 mmol/L (96-114); Potassium* 4.2 mmol/L (3.6-5.1); Sodium* 140 mmol/L (135-149)
[2025-01-19 15:56] LABS: Blood Urea Nitrogen* 10 mg/dL (5-24); Creatinine* 0.8 mg/dL (0.5-1.5); Est. Creatinine Clearance* 138.64; Estimated Glomerular Filt Rate 109 ml/min
[2025-01-19 15:57] LABS: Alanine Aminotransferase* 26 U/L (4-50); Alkaline Phosphatase* 70 U/L (40-150); Anion Gap 8 mEq/L (7-15); Aspartate Amino Transferase* 33 U/L (12-35); Bilirubin Direct* 0.3 mg/dL (0.0-0.5); Bilirubin Total* 1.2 mg/dL (0.1-1.5); Calcium* 9.1 mg/dL (8.4-10.6); Carbon Dioxide* 25 mmol/L (20-32); Glucose* 115 mg/dL (60-115); Total Protein* 8.5 g/dL (6.0-8.3)
[2025-01-19 16:02] VITALS: BP 124/85; PULSE 90; O2SAT 93
[2025-01-19 16:32] VITALS: BP 142/81; PULSE 83; O2SAT 95
[2025-01-19 17:02] VITALS: BP 145/66; PULSE 81; RESP 18; O2SAT 95
== END 2025-01-19 17:14 | disposition home or self-care (01) ==
PROVIDERS: Emergency Provider Family Medicine; PCP Family Medicine
DX: K85.90 Acute pancreatitis without necrosis or infection, unspecified (principal); R10.9 Unspecified abdominal pain
CPT/HCPCS: 36415; 74176; 80048; 80076; 83690; 85025; 86140; 94761; 96361; 96374; 96375; 99284; J1885; J2270; J7030

== ENCOUNTER 2025-02-01 11:10 | Emergency (ER) | payer BC, SELFPAY ==
--- OUTSIDE RECORDS SUMMARY | 2025-02-01 11:14 | XMS_ITS | Clinical Summary ---
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 Gender Identity Not on file Sexual Orientation [...] Procedure Name Priority Date/Time Associated Diagnosis Comments LAB TRACKING EVENT Routine 01/17/2025 8: 57 AM CDT PATH TISSUE EXAM Routine 01/17/2025 8:57 AM CDT ANTI HCV Timed 05/22/2004 9:49 AM CHARGING CAR OPERATOR LIPID PANEL Timed 01/24/2004 6:50 AM CDT from Last 3 Months or Most Recently Relevant to Health Maintenance Results * LAB TRACKING EVENT (01/17/2025 8:57 AM CDT) Other (Other) Client Collect / Unknown 01/17/2025 8:57 AM CDT 01/18/2025 7:33 AM CDT Faid Genao MD LAB BILL ONLY Final Result [facility] [address] [place] [address], * PATH TISSUE EXAM (01/17/2025 8:57 AM CDT) Case Report Pathology Report Case: [id number] Authorizing Provider: Fadi Genao MD Collected: 01/17/2025 0857 Ordering Location: [facility] Received: 01/18/2025 1039 Pathologist: Pablito Roe MD Specimen: Sigmoid Polyp 01/19/2025 12:[address] [facility] Final Diagnosis A) COLON, SIGMOID, POLYPECTOMIES: 1. Hyperplastic polyps (4) 01/19/2025 12:[address] [facility] at 1248 CDT Clinical Information Colonoscopy 01/19/2025 12:[address] [facility] Gross Description A) Received in formalin are 4 swartz mucosal fragments ranging from 2 mm to 3 mm in greatest dimension, which are entirely submitted in one cassette. It is labeled with the patient's name and designated sigmoid colon multiple polyps. Radha Parnell 01/18/2025 2:26 PM 01/19/2025 12:[address] [facility] Microscopic Description The final diagnosis is based on microscopic examination of appropriate sections of all specimens. 01/19/2025 12:[address] [facility] Additional Information Interpreted at [facility] - [address], [place] [address] 01/19/2025 12:48 PM CDT [facility] Other (Sigmoid Polyp) 01/17/2025 8:57 AM CDT 01/18/2025 10:39 AM CDT us Fadi Genao MD PATHOLOGY/CYTOLOGY Final Res ult [facility] [address] [place] [address], * ANTI HCV (05/22/2004 9:49 AM CHARGING CAR OPERATOR) ANTI HCV Non-reactiv e [facility] 05/22/2004 9:49 AM CHARGING CAR OPERATOR 05/22/2004 3:02 PM CHARGING CAR OPERATOR Narrative [facility] - 05/24/2004 12:50 PM CHARGING CAR OPERATOR Testing Performed By [place], [place] us Sandra Gallardo MD SEND OUTS Final R esult Performing Organization Address City/[facility]/ZIP Co de Phone Number [facility] [address] [place] [address] * (ABNORMAL) LIPID PANEL (01/24/2004 6:50 AM CDT) CHOLESTEROL,TOTAL 166 110 - 199 mg/dL [facility] TRIGLYCERIDES 221(H) 40 - 149 mg/dL [facility] HDL CHOLESTEROL 39(L) 41 - 75 mg/dL [facility] CHOL/HDL RATIO 4.26 <4.51 [facility] LDL CHOLESTEROL 83 60 - 130 mg/dL [facility] 01/24/2004 6:50 AM CDT 01/24/2004 2:06 AM CDT us Clarence Camarillo MD CHEMISTRY Final Res ult [facility] SENDOUT INTERNAL ZIP [id number] [place] [address] from Last 3 Months or Most Recently Relevant to [place] [address] [employer] [facility] Advance Directives * Full Code (Latest Code Status on File) Date Activated Date Inactivated Comments 11/30/2021 10:17 AM 11/30/2021 4:21 PM Question Answer Comments Code Status Discussion: Unable to Assess Preferences, Provider to review later Care Teams Plastic Design Applier Relationship Specialty Start Date End Date Pcp, No . PCP - General 11/23/21
--- OUTSIDE RECORDS SUMMARY | 2025-02-01 11:14 | XMS_ITS | Clinical Summary ---
Author Organization [facility] Address [address] [place] [address] Care Team Providers Care Nurse Aide Name Role Phone Mariela July Kings JERARDO Primary Care Provider [phone] Source Comments You are receiving this document as you are listed as the primary care provider,follow-up provider, or the patient has been referred to you for consultation.This is in compliance with the Medicare and[facility] EHR Incentive Program,which states Providers who transition their patient to another setting of careor provider of care or refers their patient to another provider of care shouldprovide summary care record for each transition of care or referral. [facility] Allergies No known active allergies Medications HYDROcodone-rajiv [...] Comments Blood Pressure 178/103 04/17/2021 12:11 PM MANAGER CANCER Pulse 113 04/17/2021 12:09 PM MANAGER CANCER Temperature 36.8 C (98.3 F) 04/17/2021 12:09 PM MANAGER CANCER Respiratory Rate 16 01/16/2014 8:29 AM CDT Oxygen Saturation 95% 04/17/2021 12:09 PM MANAGER CANCER Inhaled Oxygen Concentration - - Weight - [...] this topic Insurance [employer] [place] [address] [place] [id number] [employer] Care Teams Nurse Aide Relationship Specialty Start Date End Date Mariela July Kings, JERARDO [address] [place] [id number] PCP - General 01/16/14
[2025-02-01 11:16] VITALS: BP 132/86; PULSE 102; RESP 18; TEMP 36.8; O2SAT 97; BMI 45.6
--- NOTE | 2025-02-01 11:22 | ED_ITS ---
HPI - General Adult General Chief complaint: Abdominal Pain Stated complaint: pain in stomach/ possible Pancreatitis Time Seen by Provider: 02/01/25 11:12 History of Present Illness HPI narrative: Patient presents to the emergency department complaining of abdominal pain. Pain is unchanged from his previous visit here at [place]. Endorses nausea and constipation. 49-year-old man presenting to the emergency department with concern of continued abdominal pain. Sharp and intense. Seen by myself on 01/19/25 and diagnosed with image positive pancreatitis with abdominal pain. Lipase was was This was 2 days after a colonoscopy. Otherwise imaging was reassuring. Did have some renal calculi as well. Did go home with opiate pain management and bowel aid. He has continued to have intense pain. Nausea without vomiting. Now constipated with last bowel movement 2 days ago. He has been careful with his diet. Anything though he attempts to eat does cause flare of pain. Has really escalated again over the last couple of days again. Later questioning -- had been semaglutide couple years ago and did quite well with weight loss. No apparent side effects. Restarted again a couple of months ago. Related Data Previous Rx's ?Medication ?Instructions ?Recorded cholecalciferol (vitamin D3) 125 125 mcg PO QDAY #90 c aps 12/14/24 mcg (5,000 unit) capsule diclofenac sodium 1 % topical gel 2 g topical QID #100 grams 12/14/24 (Voltaren Arthritis Pain) semaglutide (weight loss) 0.25 0.25 mg (0.5 mL) subcut QWEEK #2 mL 12/14/24 mg/0.5 mL subcutaneous pen injector (Wegovy) semaglutide (weight loss) 0.5 0.5 mg (0.5 mL) subcut Q WEEK #2 mL 12/14/24 mg/0.5 mL subcutaneous pen injector (Wegovy) semaglutide (weight loss) 1 mg/0.5 1 mg (0.5 mL) subcu t QWEEK #2 mL 12/14/24 mL subcutaneous pen injector (Wegovy) semaglutide (weight loss) 1.7 1.7 mg (0.75 mL) subcut QWEEK #3 mL 12/14/24 mg/0.75 mL subcutaneous pen injector (Wegovy) semaglutide (weight loss) 2.4 2.4 mg (0.75 mL) subcut QWEEK #3 mL 12/14/24 mg/0.75 mL subcutaneous pen injector (Wegovy) venlafaxine 37.5 mg 37.5 mg PO QHS #180 caps capsule,extended release 24 hr peg 3350-electrolytes 236 240 ml PO Q10M #4,000 mL 12/20 gram-22.74 gram-6.74 gram-5.86 gram solution (Golytely) oxycodone-acetaminophen 5 mg-325 1 - 2 tab PO Q4-6H OK N pain #10 02/01/25 mg tablet (Percocet) tabs Allergies Allergy/AdvReac Type Severity Reaction Status Date / Time No Known Allergies Allergy Verified 02/01/25 13:35 Review of Systems Status of ROS: Reports: 6 or more systems reviewed and unremarkable except as noted in History and below [facility] History Right knee pain ?M25.561 - Pain in right knee (ICD-10) Surgical History Status post bilateral inguinal hernia repair ?Z98.890 - Other specified postprocedural states (ICD-10) ?Z87.19 - Personal history of other diseases of the digestive system (ICD-10) History of umbilical hernia repair ?Z98.890 - Other specified postprocedural states (ICD-10) ?Z87.19 - Personal history of other diseases of the digestive system (ICD-10) History of appendectomy ?Z90.49 - Acquired absence of other specified parts of digestive tract (ICD- 10) Family History Mother Breast cancer Diabetes Social History Narrative: Does not use illicit drugs Non-smoker Occasional alcohol consumption Smoking Status: Never smoker Do you use any of these nicotine containing products: None Second hand tobacco smoke exposure: No How often do you have a drink containing alcohol: never How often do you have six or more drinks on one occasion: Never AUDIT-C Alcohol total score: 0 Non-prescribed substance use: denies use service: No Exam Narrative: Exam Narrative: Pleasant. Large, tall man. Skin is warm and dry. Extremities well perfused without edema. He is breathing easily though acknowledges that it does contribute to a sense of fullness to take a big breath. Lungs appear clear. Heart in elevated rate and regular rhythm. Abdomen is obese soft without peritoneal signs. He is however quite tender to palpation in the right upper quadrant the left upper abdomen and infraumbilical area. Const: Vital Signs, click to edit/add: Vital Signs - 24 hr 02/01/25 11:16 02/01/25 13:39 02/01/25 13:40 Temperature 98.3 F Pulse Rate 89 90 Pulse Rate [Right Pulse Oximeter] 102 H Respiratory Rate 18 16 Blood Pressure 115/74 Blood Pressure [Ri ght Forearm] 132/86 Pulse Oximetry 97 95 95 Oxygen Delivery Me thod Room Air 02/01/25 13:45 02/01/25 14:00 02/01/25 14:15 Temperature Pulse Rate 91 93 93 Pulse Rate [Right Pulse Oximeter] Respiratory Rate 18 Blood Pressure Blood Pressure [Ri ght Forearm] Pulse Oximetry 96 97 97 Oxygen Delivery Me thod Documenting provider has reviewed patient's vital signs: yes Course Vital Signs Vital signs: Initial Vital Signs Temperature 98.3 F 02/01/25 11:16 Temperature Source Temporal Artery Scan 02/01/25 11:16 Pulse Rate 102 H 02/01/25 11:16 Pulse Rhythm Regular 02/01/25 11:16 Pulse Strength 3+ Normal 02/01/25 11:16 Respiratory Rate 18 02/01/25 11:16 Blood Pressure 132/86 02/01/25 11:16 Blood Pressure Mean 101 02/01/25 11:16 Blood Pressure Position Sitting 02/01/25 11:16 Pulse Oximetry 97 02/01/25 11:16 Oxygen Delivery Method Room Air 02/01/25 11:16 Vital Signs Temperature 98.3 F 02/01/25 11:16 Pulse Rate 102 H 02/01/25 11:16 Respiratory Rate 18 02/01/25 11:16 Blood Pressure 132/86 02/01/25 11:16 Pulse Oximetry 97 02/01/25 11:16 Oxygen Delivery Method Room Air 02/01/25 11:16 Temperature 98.3 F 02/01/25 11:16 Pulse Rate 93 02/01/25 14:15 Respiratory Rate 18 02/01/25 14:15 Blood Pressure 115/74 02/01/25 13:39 Pulse Oximetry 97 02/01/25 14:15 Oxygen Delivery Method Room Air 02/01/25 11:16 Medications Administered Medications: Discontinued Medications Generic Name Dose Route Start Last Admin Trade Name Donovan PRN Reason Stop Dose Admin Hydromorphone HCl 1 mg 02/01/25 11:31 02/01/25 11:59 Hydromorphone 0.5 Mg/0.5 Ml Inj IVP 02/01/25 11:32 1 mg ONCE ONE Administration Sodium Chloride 1,000 mls @ 1,000 mls/hr 02/01/25 11:31 02/01/25 14:16 0.9 % Sodium Chloride 1000 Ml IV 02/01/25 12:30 Infused .Q1H ONE Infusion Ondansetron HCl 4 mg 02/01/25 11:31 02/01/25 12:00 Ondansetron 2 Mg/Ml Inj IVP 02/01/25 11:32 4 mg ONCE ONE Administration Medical Decision Making MDM Narrative Medical decision making narrative: Pain is described as same as before with pancreatitis evident on imaging around the head of the pancreas. Appears to be failing outpatient management. Might need admission for bowel rest. Will recheck labs. Perhaps retained ductal stone. Does have underlying mild dyslipidemia. Also does take semaglutide; possibly related? Has not had any alcohol to drink for months. Pancreatic cyst or pseudocyst? Will check standard labs. Pending this will reimage. IV established. Given Dilaudid and normal saline and Zofran. Labs are generally reassuring. Normal transaminases and alkaline phosphatase suggesting against impacted stone or other. Lipase is when last seen to now 444. CRP still elevated at 3.5. Would contemplate admission or if perhaps something was missed on prior imaging as it was done without contrast. Decided to proceed with IV contrast of abdomen and limited abdominal ultrasound. On reassessment, pain is adequately controlled. IV contrasted CT the abdomen independently reviewed by me does show generalized inflammatory changes around pancreas. Ultrasound as reported to me by assorter laundry was unremarkable Indication: Upper abdominal pain, recent pancreatitis Technique: Volumetric multidetector CT images of the abdomen were obtained after the administration of intravenous contrast. 149 cc Isovue 370 low osmolar intravenous contrast Comparison: CT abdomen and pelvis January 19, 2025 Findings: The lung bases are clear. The liver is enlarged with mild hepatomegaly and hepatic steatosis. There is no focal abnormality. The portal vein is patent. The gallbladder is unremarkable without evidence of radiopaque calculus. There is no significant common biliary ductal dilatation or abrupt cut off. The spleen is normal in enhancement and size. The stomach and duodenum are grossly unremarkable. There is persistent and increased peripancreatic inflammatory changes now seen along the mid pancreatic body and tail from previous exam. Otherwise, there is grossly preserved glandular enhancement without obvious necrotic changes or large pseudocyst formation. The adrenal glands are unremarkable. Parapelvic cystic changes of the bilateral kidneys with nonobstructive calculi are again noted. Otherwise there is preserved corticomedullary differentiation. Moderate stool is seen within the partially visualized colon. Nonspecific dilatation of central small bowel loops. The appendix is surgically absent. There is no significant mesenteric, retroperitoneal, or pelvic sidewall lymph nodes. The aorta is nonaneurysmal. There is no significant atherosclerotic disease appreciated. There is no free fluid or free air. Again seen is a small umbilical hernia. The thoracolumbar vertebral body heights are grossly maintained in satisfactory alignment without evidence of displaced fracture, lytic or blastic lesion. Impression: 1. Overall progression of inflammatory changes along the length of the pancreas from previous exam with persistent moderate peripancreatic inflammation commensurate with residual acute pancreatitis changes. No evidence of obvious pancreatic necrosis. 2. Otherwise, stable hepatomegaly and hepatic steatosis. Please note that all CT scans at this facility use dose modulation, iterative reconstruction, and/or weight-based dosing when appropriate to reduce radiation dose to as low as reasonably achievable. Dictated by Nathaniel Pineda MD @ 02/01/2025 1:44:30 PM With otherwise relatively normal labs, wonder if this semaglutide might be the culprit causing pancreatitis here. Unfortunately some washout time will be requ ired. I would think the constipation that is evolving might be contributing to abdominal pain as well. Discussed admission versus outpatient management. I think outpatient management can certainly still be tried. Mr. Bravo would prefer to do this. See patient discharge plan for further discussion Your imaging shows a little worse pancreatitis. Your labs do as well. Otherwise your labs and imaging are reassuring. Overall similar to before. I am hopeful that with discontinuing this semaglutide that you can get back to normal. I would anticipate this would take longer than a week though to washout. Would follow up to discuss this further in primary care; to discuss other options for care. Continue with bland diet, clears over this next week. As you are becoming constipated, would add senna to stimulate your bowels to any regimen where you are taking oral opiate. Take 1-2 tabs daily on the days that you are taking Percocet for example. I would also add MiraLax equivalent into at least 8 oz of liquid start with a couple of doses today and adjust between 1- 3 doses daily for stool consistency until you are through this. Can certainly return for uncontrolled pain, fever, repeated vomiting. Percocet prescribed from [employer] [employer] [facility]. I will send in another 10 tabs to your pharmacy. Can still take ibuprofen or naproxen for pain. Both of these probably better with a little bit of something in your stomach. Medical Records Medical records reviewed: Yes I reviewed the patient's medical records Lab Data Lab results reviewed: Yes I reviewed the patient's lab results Labs: Lab Results 02/01/25 Range/Units 11:37 WBC 9.17 (4.50-11.00) K/uL RBC 4.77 (4.30-5.90) m/uL Hgb 14.4 (13.5-17.5) gm/dL Hct 43.5 (37.0-53.0) % MCV 91 (80-100) fL MCH 30 (26-34) pg MCHC 33 (32-36) gm/dL RDW Coeff of Gabino 12.5 (11.5-15.5) % Plt Count 258 (140-440) K/uL Neut % (Auto) 62.3 (42.0-72.0) % Lymph % (Auto) 19.4 L (20-44) % Ray % (Auto) 15.0 H (0.0-11.0) % Eos % (Auto) 2.9 (0.0-7.0) % Baso % (Auto) 0.3 (0.0-3.0) % Neut # (Auto) 5.70 (1.7-7.0) K/uL Lymph # (Auto) 1.80 (0.90-2.90) K/uL Ray # (Auto) 1.40 H (0.00-0.90) K/UL Eos # (Auto) 0.27 (0.00-0.50) K/uL Baso # (Auto) 0.03 (0.00-0.30) K/uL Abs Immat Gran (auto) 0.01 (0.00-0.30) K/uL Imm/Tot Granulo (auto) 0.1 % Sodium 137 (135-149) mmol/L Potassium 4.0 (3.6-5.1) mmol/L Chloride 105 (96-114) mmol/L Carbon Dioxide 27 (20-32) mmol/L Anion Gap 5 L (7-15) mEq/L BUN 9 (5-24) mg/dL Creatinine 0.9 (0.5-1.5) mg/dL Estimated Creat Clear 123.23 Estimated GFR 105 ml/min Glucose 98 (60-115) mg/dL Calcium 9.1 (8.4-10.6) mg/dL Total Bilirubin 1.0 (0.1-1.5) mg/dL Direct Bilirubin 0.2 (0.0-0.5) mg/dL AST 23 (12-35) U/L ALT 22 (4-50) U/L Alkaline Phosphatase 81 (40-150) U/L Lactate Dehydrogenase 166 (120-246) U/L C-Reactive Protein 3.5 H (0.5-1.0) mg/dL Total Protein 7.9 (6.0-8.3) g/dL Albumin 4.0 (3.3-5.0) g/dL Lipase 444 H (23-300) U/L Discharge Plan Discharge Clinical Impression: Pancreatitis, Abdominal pain, Constipation Patient Disposition: Home w/ Parent or Adult Condition: Stable Additional Instructions: Your imaging shows a little worse pancreatitis. Your labs do as well. Otherwise your labs and imaging are reassuring. Overall similar to before. I am hopeful that with discontinuing this semaglutide that you can get back to normal. I would anticipate this would take longer than a week though to washout. Would follow up to discuss this further in primary care; to discuss other options for care. Continue with bland diet, clears over this next week. As you are becoming constipated, would add senna to stimulate your bowels to any regimen where you are taking oral opiate. Take 1-2 tabs daily on the days that you are taking Percocet for example. I would also add MiraLax equivalent into at least 8 oz of liquid start with a couple of doses today and adjust between 1- 3 doses daily for stool consistency until you are through this. Can certainly return for uncontrolled pain, fever, repeated vomiting. Percocet prescribed from [facility]. I will send in another 10 tabs to your pharmacy. Can still take ibuprofen or naproxen for pain. Both of these probably better with a little bit of something in your stomach. Prescriptions: New oxycodone-acetaminophen [Percocet] 5-325 mg tablet 1 - 2 tab PO Q4-6H PRN (Reason: pain) Qty: 10 0RF No Action diclofenac sodium [Voltaren Arthritis Pain] 1 % gel 2 g topical QID Qty: 100 0RF Rx Instructions: apply to knee up to 4 times a day as needed venlafaxine 37.5 mg capsule,extended release 24hr 37.5 mg PO QHS Qty: 180 1RF Rx Instructions: start with one tab daily x 1 week, then increase to 2 tabs daily thereafter Wegovy 0.25 mg/0.5 mL pen injector 0.25 mg subcut QWEEK Qty: 2 0RF Rx Instructions: administer weeks 1 through 4 of therapy Wegovy 0.5 mg/0.5 mL pen injector 0.5 mg subcut QWEEK Qty: 2 0RF Rx Instructions: administer weeks 5 through 8 of therapy Wegovy 1 mg/0.5 mL pen injector 1 mg subcut QWEEK Qty: 2 0RF Rx Instructions: administer weeks 9 through 12 of therapy Wegovy 1.7 mg/0.75 mL pen injector 1.7 mg subcut QWEEK Qty: 3 0RF Rx Instructions: administer weeks 13 through 16 of therapy Wegovy 2.4 mg/0.75 mL pen injector 2.4 mg subcut QWEEK Qty: 3 0RF cholecalciferol (vitamin D3) 125 mcg (5,000 unit) capsule 125 mcg PO QDAY Qty: 90 3RF peg 3350-electrolytes [Golytely] 236-22.74-6.74 -5.86 gram recon soln 240 ml PO Q10M Qty: 4000 0RF Rx Instructions: until fecal effluent is clear Follow Up/Referrals: Zachary Grey MD [Primary Care Provider, Family Practice] Stand Alone Forms: [employer] Info Instructions
[2025-02-01 11:56] LABS: Hematocrit* 43.5 % (37.0-53.0); Hemoglobin* 14.4 gm/dL (13.5-17.5); Immature Granulocytes Abs Auto 0.01 K/uL (0.00-0.30); Immature Granulocytes Pct Auto 0.1 %; Mean Corpuscular HGB Conc 33 gm/dL (32-36); Mean Corpuscular Hemoglobin 30 pg (26-34); Mean Corpuscular Volume 91 fL (80-100); RDW Coefficient of Variation % 12.5 % (11.5-15.5); Red Blood Count* 4.77 m/uL (4.30-5.90); White Blood Count* 9.17 K/uL (4.50-11.00)
[2025-02-01] MEDS: ONDANSETRON 2 MG/ML inj 4 MG IVP (12:00)
[2025-02-01 12:16] LABS: Albumin* 4.0 g/dL (3.3-5.0); Chloride* 105 mmol/L (96-114)
[2025-02-01 12:17] LABS: Potassium* 4.0 mmol/L (3.6-5.1); Sodium* 137 mmol/L (135-149)
[2025-02-01 12:19] LABS: Blood Urea Nitrogen* 9 mg/dL (5-24); Creatinine* 0.9 mg/dL (0.5-1.5); Est. Creatinine Clearance* 123.23; Estimated Glomerular Filt Rate 105 ml/min
[2025-02-01 12:20] LABS: Alanine Aminotransferase* 22 U/L (4-50); Alkaline Phosphatase* 81 U/L (40-150); Anion Gap 5 mEq/L (7-15); Aspartate Amino Transferase* 23 U/L (12-35); Bilirubin Direct* 0.2 mg/dL (0.0-0.5); Bilirubin Total* 1.0 mg/dL (0.1-1.5); Calcium* 9.1 mg/dL (8.4-10.6); Carbon Dioxide* 27 mmol/L (20-32); Glucose* 98 mg/dL (60-115); Total Protein* 7.9 g/dL (6.0-8.3)
[2025-02-01 12:39] LABS: Lymphocytes Absolute Auto 1.80 K/uL (0.90-2.90); Slide Review Reflex No
--- NOTE | 2025-02-01 12:44 | CRLHL7_ITS ---
For Patients: As a result of the Century Cures Act, medical imaging exams and procedure reports are released immediately into your electronic medical record. You may view this report before your referring provider. If you have questions, please contact your health care provider. Indication: Pain, pancreatitis TECHNIQUE: Ultrasound abdomen limited. Sonographic images of the right upper quadrant were obtained using diaz-scale and color Doppler images. Comparison: None FINDINGS: Liver: Increased echogenicity of the liver with focal sparing adjacent to the gallbladder fossa. Gallbladder: No stones or sludge. Normal wall thickness. No pericholecystic fluid. Common bile duct: 3 mm. Impression: 1. Normal sonographic appearance of the gallbladder and biliary tree. 2. Mild hepatic steatosis. Dictated by Keegan Fischer MD @ 02/01/2025 1:46:49 PM (Electronically Signed)
--- NOTE | 2025-02-01 12:44 | CRLHL7_ITS ---
For Patients: As a result of the Century Cures Act, medical imaging exams and procedure reports are released immediately into your electronic medical record. You may view this report before your referring provider. If you have questions, please contact your health care provider. Indication: Upper abdominal pain, recent pancreatitis Technique: Volumetric multidetector CT images of the abdomen were obtained after the administration of intravenous contrast. 149 cc Isovue 370 low osmolar intravenous contrast Comparison: CT abdomen and pelvis January 19, 2025 Findings: The lung bases are clear. The liver is enlarged with mild hepatomegaly and hepatic steatosis. There is no focal abnormality. The portal vein is patent. The gallbladder is unremarkable without evidence of radiopaque calculus. There is no significant common biliary ductal dilatation or abrupt cut off. The spleen is normal in enhancement and size. The stomach and duodenum are grossly unremarkable. There is persistent and increased peripancreatic inflammatory changes now seen along the mid pancreatic body and tail from previous exam. Otherwise, there is grossly preserved glandular enhancement without obvious necrotic changes or large pseudocyst formation. The adrenal glands are unremarkable. Parapelvic cystic changes of the bilateral kidneys with nonobstructive calculi are again noted. Otherwise there is preserved corticomedullary differentiation. Moderate stool is seen within the partially visualized colon. Nonspecific dilatation of central small bowel loops. The appendix is surgically absent. There is no significant mesenteric, retroperitoneal, or pelvic sidewall lymph nodes. The aorta is nonaneurysmal. There is no significant atherosclerotic disease appreciated. There is no free fluid or free air. Again seen is a small umbilical hernia. The thoracolumbar vertebral body heights are grossly maintained in satisfactory alignment without evidence of displaced fracture, lytic or blastic lesion. Impression: 1. Overall progression of inflammatory changes along the length of the pancreas from previous exam with persistent moderate peripancreatic inflammation commensurate with residual acute pancreatitis changes. No evidence of obvious pancreatic necrosis. 2. Otherwise, stable hepatomegaly and hepatic steatosis. Please note that all CT scans at this facility use dose modulation, iterative reconstruction, and/or weight-based dosing when appropriate to reduce radiation dose to as low as reasonably achievable. Dictated by Nathaniel Pineda MD @ 02/01/2025 1:44:30 PM (Electronically Signed)
[2025-02-01 13:39] VITALS: BP 115/74; PULSE 89; RESP 16; O2SAT 95
[2025-02-01 13:40] VITALS: PULSE 90; O2SAT 95
[2025-02-01 13:45] VITALS: PULSE 91; O2SAT 96
[2025-02-01 14:00] VITALS: PULSE 93; O2SAT 97
[2025-02-01 14:15] VITALS: PULSE 93; RESP 18; O2SAT 97
== END 2025-02-01 15:10 | disposition home or self-care (01) ==
PROVIDERS: Emergency Provider Family Medicine; PCP Family Medicine
DX: R10.10 Upper abdominal pain, unspecified (principal); K85.90 Acute pancreatitis without necrosis or infection, unspecified; K59.00 Constipation, unspecified
CPT/HCPCS: 36415; 74160; 76705; 80048; 80076; 83615; 83690; 85025; 86140; 94761; 96374; 96375; 99284; 99285; J1171; J2405; J7030; Q9967

== ENCOUNTER 2025-02-04 08:48 | Outpatient (CLI) | payer BC, SELFPAY | END 2025-02-04 08:49 | disposition home or self-care (01) | PROVIDERS: PCP Family Medicine; Visit Provider Family Medicine | DX: K85.90 Acute pancreatitis without necrosis or infection, unspecified (principal) | CPT/HCPCS: 80053; 83690; 86140 ==